=== PATIENT | male | born 1970 | race Caucasian/White ===

== ENCOUNTER 2017-04-01 09:44 | Emergency (ER) | payer BC ==
[~2017-04-01] VITALS: Ht 162.6 cm; Wt 63.5 kg
[2017-04-01] MEDS ORDERED: BREO ELLIPTA 21 EACH INH (09:58)
[2017-04-01] MEDS ORDERED: BACTRIM DS TAB1 EACH PO (10:38)
== END 2017-04-01 11:14 | disposition home or self-care (01) ==
LOC: ED 09:44
DX: L02.415 Cutaneous abscess of right lower limb (principal); J44.9 Chronic obstructive pulmonary disease, unspecified; Z91.013 Allergy to seafood; Z79.51 Long term (current) use of inhaled steroids; Z91.048 Other nonmedicinal substance allergy status
CPT/HCPCS: 99283

== ENCOUNTER 2020-01-19 08:40 | Emergency (ER) | payer OTHER, BC ==
[~2020-01-19] VITALS: Ht 162.6 cm; Wt 63.5 kg
--- OUTSIDE RECORDS SUMMARY | ~2020-01-19 | XMS | Encounter Summary ---
Demographics + + + | Address | [address] | | | [place] [address] | + + + | Home Phone | | + + + | Preferred Language | Unknown | + + + | Marital Status | Unknown | + + + | Hinduism Affiliation | Unknown | + + + | Race | White | + + + | Ethnic Group | Not or | + + + Author + + + | Author | [facility] | | | and [place] | + + + | Organization | [facility] | | | and [place] | + + + | Address | Unknown | + + + | Phone | Unavailable | + + + Support + + +---------+ + | Name | Relationship | Address | Phone | + + +---------+ + | Olivia Bradley | ECON | Unknown | | + + +---------+ + Care Team Providers + +------+ + | Care Make Up Editor Name | Role | Phone | + +------+ + PCP | Unavailable | + +------+ + Encounter Details +--------+ + + + + | Date | Type | Department | Care Team | Description | +--------+ + + + + | 09/01/ | Hospital | [facility] | Conversion | Asthma with status | | 2015 | Encounter | [facility] | Transaction, | asthmaticus, | | | | [address] | Provider Unknown | unspecified asthma | | | | [place], [place] | | severity | | | | [phone] | (Fax) | | | | | [phone] | | | +--------+ + + + + Social History + +-------+ +--------+------+ | Tobacco Use | Types | Packs/Day | Years | Date | | | | | Used | | + +-------+ +--------+------+ | Never Assessed | | | | | + +-------+ +--------+------+ + + + | Sex Assigned at | Date Recorded | | | | + + + | Not on file | | + + + documented as of this encounter Plan of Treatment Not on filedocumented as of this encounter Procedures + +--------+ + + + | Procedure Name | Priori | Date/Time | Associated Diagnosis | Comments | | | ty | | | | + +--------+ + + + | XR CHEST 2 VIEWS | Routin | 09/02/2015 | | Results for this | | | e | 4:23 PM | | procedure are in the | | | | PDT | | results section. | + +--------+ + + + documented in this encounter Results XR Chest 2 Vws (09/02/2015 4:23 PM PDT) + + | Specimen | + + | | + + + + + | Impressions | Performed At | + + + | 1. Ill-defined density in the right lung base. This may be due to | | | atelectasis, but I would recommend follow-up chest x-ray to exclude | | | pulmonary nodule. 2. Strandy atelectasis in the lingula and right | | | middle lobe. Electronically signed by Yosef Hartmann MD on | | | 09/02/2015 6:05 PM | | + + + + + + | Narrative | Performed At | + + + | HISTORY: Asthma. Difficulty breathing. COMPARISON: None. | | | TECHNIQUE: PA and lateral films of the chest. FINDINGS: Minimal | | | strandy changes in the lingula and right middle lobe, better defined | | | on the lateral film. In the right lung base on the frontal film, there | | | is focal density just above the central hemidiaphragm. This may | | | simple be due to atelectasis, but appears somewhat nodular. I would | | | recommend progress PA and lateral films as a precaution. Heart size is | | | normal. | | + + + + + | Procedure Note | + + | Yr, Rad Conversion - 11/30/2018 6:43 PM PDT HISTORY:Asthma. Difficulty breathing. | | COMPARISON:None. TECHNIQUE:PA and lateral films of the chest. FINDINGS:Minimal strandy | | changes in the lingula and right middle lobe, better defined on the lateral film. In the | | right lung base on the frontal film, there is focal density just above the central | | hemidiaphragm. This may simple be due to atelectasis, but appears somewhat nodular. I | | would recommend progress PA and lateral films as a precaution. Heart size is normal. | | IMPRESSION: 1. Ill-defined density in the right lung base. This may be due to | | atelectasis, but I would recommend follow-up chest x-ray to exclude pulmonary nodule.2. | | Strandy atelectasis in the lingula and right middle lobe. | |Minimal strandy changes in the lingula and right middle lobe, better defined on the lateral film. In the right lung base on the frontal film, there is focal density just above the segundo tral hemidiaphragm. This may | |simple be due to atelectasis, but appears | |somewhat nodular. I would recommend progress PA and lateral films as a precaution. Heart si ze is normal. | | | |IMPRESSION: | |1. Ill-defined density in the right lung base. This may be due to atelectasis, but I would recommend follow-up chest x-ray to exclude pulmonary nodule. | |2. Strandy atelectasis in the lingula and right middle lobe. | | | | | + + documented in this encounter Visit Diagnoses + + | Diagnosis | + + | Asthma with status asthmaticus, unspecified asthma severity | + + documented in this encounter"
--- OUTSIDE RECORDS SUMMARY | ~2020-01-19 | XMS | Encounter Summary ---
Demographics + + + | Address | [address] | | | [place] [address] | + + + | Home Phone | | + + + | Preferred Language | Unknown | + + + | Marital Status | Unknown | + + + | Holiness Affiliation | Unknown | + + + | Race | White | + + + | Ethnic Group | Not or | + + + Author + + + | Author | [facility] | | | and [place] | + + + | Organization | [facility] | | | [...] Team Providers + +------+ + | Care Hot Billet Shear Operator Name | Role | Phone | + +------+ + PCP | Unavailable | + +------+ + Encounter Details +--------+ + + + + | Date | Type | Department | Care Team | Description | +--------+ + + + + | 10/23/ | Hospital | [facility] | Conversion | Atelectasis | | 2015 | Encounter | [facility] [address] | Transaction, | | | | | [address] | Provider Unknown | | | | | [place], [place] | | | | | | [phone] | (Fax) | | | | | [phone] | | | +--------+ + + + [...] | + +--------+ + + + | CT CHEST WO CONTRAST | Routin | 10/24/2015 | | Results for this | | | e | 2:03 PM | | procedure are in the | | | | PDT | | results section. | + +--------+ + + + documented in this encounter Results CT Chest wo Contrast (10/24/2015 2:03 PM PDT) + + | Specimen | + + | | + + + + + | Impressions | Performed At | + + + | 1. Multiple linear densities the RIGHT middle lobe, suggesting | | | chronic parenchymal scarring or persistent subsegmental atelectasis, | | | similar to that visualized on recent radiography of 09/02/15. 2. | | | Additional mild linear nonspecific densities are noted in the | | | lingular segment of the LEFT upper lobe and the apical area of the | | | LEFT upper lobe. 3. Mild bronchial wall thickening consistent with | | | acute or chronic bronchitis or chronic asthma. 4. Mild bilateral | | | gynecomastia. 5. Minimal hepatic cyst. 6. The remainder of the | | | examination is unremarkable. | | + + + + + + | Narrative | Performed At | + + + | [facility] CARRASCO III CT CHEST WO CONTRAST 10/24/2015 2:03 PM | | | History: 45 years. Male. History of asthma. Linear densities | | | in the RIGHT lung on recent chest radiography of 09/02/15. No | | | history of smoking. No history of beryllium or asbestos exposure. | | | During a single breath hold, 1.25 mm thick slices were performed in | | | the axial plane throughout the chest. 5 mm thick slices were | | | reconstructed at 5 mm intervals in the axial plane for display. No | | | IV contrast was administered. Additional coronal plane imaging was | | | reconstructed. Radiation dose reduction performed with automated | | | exposure control. Comparison examinations: None. Findings: | | | Peribronchial linear densities noted in the RIGHT middle lobe, | | | similar to that visualized on recent chest radiography, suggesting | | | parenchymal scarring or chronic mild subsegmental atelectasis. No | | | pulmonary nodule or mass visualized in this region. The findings | | | are not typical of pneumonia. Similar peripheral linear densities | | | are noted inferiorly in the lingular segment of the LEFT upper lobe, | | | as well as the posterior apical area the LEFT lung. Mild central | | | bronchial wall thickening suggesting acute or chronic bronchitis or | | | chronic asthma. No pulmonary nodule or mass identified. No | | | interstitial lung disease identified. The cardiac size and contour | | | are normal. No pericardial effusion or coronary calcifications | | | visualized. The caliber of the thoracic aorta and pulmonary arteries | | | is normal. There is no evidence of mediastinal or hilar adenopathy. | | | The axillary regions are likewise negative for adenopathy. The | | | scalene lymph node chains and supraclavicular regions are partially | | | visualized and appear clear. The thyroid gland is normal in size | | | and density, without nodule. There is minimal bilateral | | | gynecomastia, measuring 10 mm bilaterally. The upper abdomen is | | | partially visualized and appears normal. This is not a complete | | | examination of the abdomen. A minimal 7 mm cyst is noted in the | | | peripheral RIGHT hepatic lobe. The bone windows fail to show any | | | neoplastic bone changes in the range of scan. | | + + + + + | Procedure Note | + + | Ry, Rad Conversion - 11/30/2018 6:43 PM PDT [facility] S[facility] WHITE IIICT CHEST WO | | CONTRAST10/24/2015 2:03 PM History: 45 years. Male. History of asthma. Linear | | densities in the RIGHT lung on recent chest radiography of 09/02/15. No history of | | smoking. No history of beryllium or asbestos exposure. During a single breath hold, | | 1.25 mm thick slices were performed in the axial plane throughout the chest. 5 mm thick | | slices were reconstructed at 5 mm intervals in the axial plane for display. No IV | | contrast was administered. Additional coronal plane imaging was reconstructed. Radiation | | dose reduction performed with automated exposure control. Comparison examinations: | | None. Findings: Peribronchial linear densities noted in the RIGHT middle lobe, similar | | to that visualized on recent chest radiography, suggesting parenchymal scarring or | | chronic mild subsegmental atelectasis. No pulmonary nodule or mass visualized in this | | region. The findings are not typical of pneumonia. Similar peripheral linear densities | | are noted inferiorly in the lingular segment of the LEFT upper lobe, as well as the | | posterior apical area the LEFT lung. Mild central bronchial wall thickening suggesting | | acute or chronic bronchitis or chronic asthma. No pulmonary nodule or mass identified. | | No interstitial lung disease identified. The cardiac size and contour are normal. No | | pericardial effusion or coronary calcifications visualized. The caliber of the thoracic | | aorta and pulmonary arteries is normal. There is no evidence of mediastinal or hilar | | adenopathy. The axillary regions are likewise negative for adenopathy. The scalene lymph | | node chains and supraclavicular regions are partially visualized and appear clear. The | | thyroid gland is normal in size and density, without nodule. There is minimal bilateral | | gynecomastia, measuring 10 mm bilaterally. The upper abdomen is partially visualized | | and appears normal. This is not a complete examination of the abdomen. A minimal 7 mm | | cyst is noted in the peripheral RIGHT hepatic lobe. The bone windows fail to show any | | neoplastic bone changes in the range of scan. IMPRESSION: 1. Multiple linear densities | | the RIGHT middle lobe, suggesting chronic parenchymal scarring or persistent | | subsegmental atelectasis, similar to that visualized on recent radiography of | | 09/02/15.2. Additional mild linear nonspecific densities are noted in the lingular | | segment of the LEFT upper lobe and the apical area of the LEFT upper lobe.3. Mild | | bronchial wall thickening consistent with acute or chronic bronchitis or chronic | | asthma.4. Mild bilateral gynecomastia.5. Minimal hepatic cyst.6. The remainder of the | | examination is unremarkable. | | 3:34 PM | |2. Additional mild linear nonspecific densities are noted in the lingular segment of the L EFT upper lobe and the apical area of the LEFT upper lobe. | |3. Mild bronchial wall thickening consistent with acute or chronic bronchitis or chronic a sthma. | |4. Mild bilateral gynecomastia. | |5. Minimal hepatic cyst. | |6. The remainder of the examination is unremarkable. | | | | | + + documented in this encounter Visit Diagnoses + + | Diagnosis | + + | Atelectasis Pulmonary collapse | + + documented in this encounter"
--- OUTSIDE RECORDS SUMMARY | ~2020-01-19 | XMS | Encounter Summary ---
Demographics + + + | Address | [address] | | | [place] [address] | + + + | Home Phone | | + + + | Preferred Language | Unknown | + + + | Marital Status | Unknown | + + + | Nondenominational Affiliation | Unknown | + + + | Race | White | + + + | Ethnic Group | Not or | + + + Author + + + | Author | [facility] | | | and [place] | + + + | Organization | [facility] | | [...] Team Providers + +------+ + | Care Senior Bioinformatics Scientist Name | Role | Phone | + +------+ + PCP | Unavailable | + +------+ + Encounter Details +--------+ + + + + | Date | Type | Department | Care Team | Description | +--------+ + + + + | 09/02/ | Hospital | [facility] | Conversion | Pain | | 2016 | Encounter | CONVERSION [address] | Transaction, | | | | | [address] | Provider Unknown | | | | | [place] | | | | | | [phone] | (Fax) | | | | | [phone] | | | +--------+ + + + [...] +--------+ + + + | XR CHEST 1 VIEW | Routin | 08/06/2015 | | Results for this | | | e | 12:51 AM | | procedure are in the | | | | PDT | | results section. | + +--------+ + + + documented in this encounter Results XR Chest 1 Vw (08/06/2015 12:51 AM PDT) + + | Specimen | + + | | + + + + + | Narrative | Performed At | + + + | This is a non-reportable procedure without a radiologist report and | | | is used for image storage only | | + + + + + | Procedure Note | + + | RyEnmanuel Conversion - 11/30/2018 6:43 PM PDT This is a non-reportable procedure | | without a radiologist report and isused for image storage only | + + documented in this encounter Visit Diagnoses + + | Diagnosis | + + | Pain Generalized pain | + + documented in this encounter"
--- OUTSIDE RECORDS SUMMARY | ~2020-01-19 | XMS | Clinical Summary ---
Demographics + + + | Address | [address] | | | [place] [address] | + + + | Home Phone | | + + + | Preferred Language | Unknown | + + + | Marital Status | Unknown | + + + | Yarsani Affiliation | Unknown | + + + | Race | White | + + + | Ethnic Group | Not or | + + + Author + + + | Author | [facility] | | | and [place] | + + + | Organization | [facility] | | | [...] Team Providers + +------+ + | Care Pharmacy Resource Tech Name | Role | Phone | + +------+ + | Megan Kwon DINING SERVICES DIRECTOR | PCP | | + +------+ + Allergies Not on File Medications Not on file Active Problems Not on file Social History + +-------+ +--------+------+ | Tobacco [...] on file | | + + + Last Filed Vital Signs Not on file Plan of Treatment + + +-------+ + | Health Maintenance | Due Date | Last | Comments | | | | Done | | + + +-------+ + | Vaccine: | | | | | Dtap/Tdap/Td (1 - | 0 | | | | Tdap) | | | | + + +-------+ + | Vaccine: Influenza | | | | | (#1) | 0 | | | + + +-------+ + Results Not on filefrom Last 3 Months"
[~2020-01-19 08:40] MED LIST: BACTRIM DS TAB1 EACH PO; BREO ELLIPTA 21 EACH INH
[2020-01-19] MEDS ORDERED: BLEPH-105 ML OPTH (09:26)
[2020-01-19] MEDS ORDERED: NORCO 5-325 TA1 EACH PO (09:26)
== END 2020-01-19 09:40 | disposition home or self-care (01) ==
LOC: ED 08:40
DX: T15.11XA Foreign body in conjunctival sac, right eye, initial encounter (principal); J44.9 Chronic obstructive pulmonary disease, unspecified; Z88.8 Allergy status to other drugs, medicaments and biological substances; Z91.013 Allergy to seafood; Z79.899 Other long term (current) drug therapy
CPT/HCPCS: 65205; 99283-25